=== PATIENT | male | born 1970 | race Caucasian/White ===

== ENCOUNTER 2016-03-05 16:46 | Emergency (ER) | payer MEDICAID ==
[2016-03-05 17:38] VITALS: BP 135/80
[2016-03-05] MEDS ORDERED: ceFAZolin 2 GM in Sodium Chloride 0.9% 100 ML IV ONE (17:42)
--- NOTE | 2016-03-05 17:47 | ED Physician Chart ---
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 since friday has noted redness and swelling and mod ache pain at left ant knee. he says back of leg hurts also. no fever. no sob. no cough. no cp. no khari pmh Allergies:: Allergies Allergy/AdvReac Type Severity Reaction Status Date / Time No Known Allergies Allergy Verified 03/05/16 17:34 Vitals:: Vital Signs - 8 hr 03/05/16 17:37 BP 135/80 Historian:: Patient Review of Systems - Review of Systems General/Constitutional: No fever, No chills, No weight loss, No weakness, No diaphoresis, No edema, No loss of appetite Skin: No skin lesions, No rash, No bruising Head: No headache, No light-headedness Eyes: No loss of vision, No pain, No diplopia ENT: No earache, No nasal drainage, No sore throat, No tinnitus Neck: No neck pain, No swelling, No thyromegaly, No stiffness, No mass noted Cardio Vascular: No chest pain, No palpitations, No PND, No orthopnea, No edema Pulmonary: No SOB, No cough, No sputum, No wheezing GI: No nausea, No vomiting, No diarrhea, No pain, No melena, No hematochezia, No constipation, No hematemesis G/U: No dysuria, No frequency, No hematuria Musculoskeletal: Bone or joint pain, No back pain, No muscle pain Endocrine: No polyuria, No polydipsia Psychiatric: No prior psych history, No depression, No anxiety, No suicidal ideation Hematopoietic: No bruising, No lymphadenopathy Allergic/Immuno: No urticaria, No angioedema Neurological: No syncope, No focal symptoms, No weakness, No paresthesia, No headache, No seizure, No dizziness, No confusion, No vertigo Past Medical History - Past Medical History Past Medical History: No significant medical hx Social History: Non Smoker Medication: None Family Medical History - Family Member Mother Ethnicity: Hx Family Cancer: No Hx Family Coronary Artery Disease: No Hx Family Congestive Heart Failure: No Hx Family Hypertension: No Hx Family Stroke: No Hx Family Diabetes: No Hx Family Seizures: No Hx Family Dementia: No Hx Family AIDS: No Hx Family HIV: No Hx Family COPD: No Hx Family Hepatitis: No Hx Family Psychiatric Problems: No Hx Family Tuberculosis: No Physical Exam - Physical Examination General/Constitutional: Awake, Well-developed, well-nourished, Alert, No distress, GCS 15, Non-toxic appearing, Ambulatory Head: Atraumatic Eyes: Lids, conjuctiva normal, PERRL, EOMI Skin: Nl inspection, No rash, No skin lesions, No ecchymosis, Well hydrated, No lymphadenopathy ENMT: External ears, nose nl, Nasal exam nl, Lips, teeth, gums nl Neck: Nontender, Full ROM w/o pain, No JVD, No nuchal rigidity, No bruit, No mass, No stridor Respiratory: Nl effort/Exclusion, Clear to Auscultation, No Wheeze/Rhonchi/Rales Cardio Vascular: RRR, No murmur, gallop, rubs, NL S1 S2 GI: No tenderness/rebounding/guarding, No organomegaly, No hernia, Normal BS's, Nondistended, No mass/bruits, No McBurney tenderness : No CVA tenderness Extremities: Full ROM, normal strength in all extremities, No edema, Normal digits & nails Other Extremities comments:: tndr at anterior left knee w red and local swelling superficial to patella.( bulging superficial abscess) no knee effusion, ok rom. no calf edema. Neuro/Psych: Alert/oriented, DTR's symmetric, Normal sensory exam, Normal motor strength, Judgement/insight normal, Mood normal, Normal gait, No focal deficits Misc: normal gait, Normal back, No paraspinal tenderness Labs/Radiology/EKG Results - Radiology Results Results: us l leg no dvt. wnl Assessment - Procedures Procedures:: I+D Abscess at left ant knee. betadyne prep lido 1pct w epi 6ml to ant l knee around abscess sterile prep/drapes #11 scalpel to make 0.8cm incision at ant knee. drainage of lrg ammt gary pus. cx obtained and sent. pt had very poor tolerance of pain w lido injection. he also had very poor tolerance of I+D procedure w him moving around excessively on bed and finally yelling "no more" at me... ED Septic Shock - . Is Septic Shock (SBP<90, OR Lactate>4 mmol\\L) present?: No - <6hrs of presentation: Vital Signs: Vital Signs - 8 hr 03/05/16 17:37 BP 135/80 Reassessment (Disposition) - Reassessment Reassessment:: pt was given ms4mg iv and zofran. 7;54p - reexamined pt. suggested we attempt to further drain the knee but pt is not willing to allow me to try. I would think after the MS this would be easier but pt still refuses. explained to pt to try to drain it further in tub when he gets home. will rx keflex and norco 5s #10 pt to return if worse. off work. see pmd this week. Reassessment Condition:: Improved - Diagnosis Diagnosis:: superficial abscess left anterior knee - Aftercare/Follow up Instructions Aftercare/Follow-Up Instructions:: Counseled pt regarding lab results/diagnosis & need follow up Notes:: advised to wash knee in bath 2x/day. take keflex as rx'd return if worse swelling and fever. or weakness/confusion or spreading redness w high fever - Patient Disposition Discharge/Transfer:: Home Condition at Disposition:: Improved
[2016-03-05 19:03] LABS: % BASOPHILS 1.2 % (0.0-2.0); % EOSINOPHILS 1.4 % (0.0-5.0); % LYMPHOCYTES 13.6 % (20.0-50.0); % MONOCYTES 6.6 % (2.0-10.0); % NEUTROPHILS 77.2 % (40.0-80.0); HEMOGLOBIN 13.5 gm/dL (13.2-17.3); MEAN CELL VOLUME 85.3 fl (80-99); MEAN CORPUSCULAR HEMOGLOBIN 28.1 pg (26.0-30.0); MEAN CORPUSCULAR HGB CONC 32.9 pg (28.0-36.0); MEAN PLATELET VOLUME 7.2 fl; NEUTROPHILE ABSOLUTE 7.1 Th/cmm (1.8-8.0); PLATELET COUNT 324 Th/cmm (150-400); RED BLOOD COUNT 4.81 Mil/cmm (4.30-5.70); RED CELL DISTRIBUTION WIDTH 11.5 % (11.5-20.0); WHITE BLOOD COUNT 9.1 Th/cmm (4.8-10.8)
[2016-03-05] MEDS ORDERED: Morphine Sulfate 4 mg/mL 1mL Syr ONE (19:17)
[2016-03-05 19:21] LABS: BUN - UREA NITROGEN 12 mg/dL (7-25); CALCIUM SERUM 9.1 mg/dL (8.6-10.3); CARBON DIOXIDE 29.6 mEq/L (21.0-31.0); CHLORIDE 102 mEq/L (98-107); CREATININE - SERUM 0.8 mg/dL (0.7-1.3); GLUCOSE 106 mg/dL (70-105); POTASSIUM SERUM 3.6 mEq/L (3.5-5.1); SODIUM SERUM 137 mEq/L (136-145)
--- NOTE | 2016-03-06 12:55 | Diagnostic Imaging Report ---
Left lower extremity Doppler venous ultrasound exam HISTORY: Pain/swelling Sonographic sector images were obtained through the deep venous systems of the left leg. Associated Doppler data was obtained. The exam demonstrates patency of the common femoral, superficial femoral, popliteal, and posterior tibial veins. Specifically, no thrombus is seen. There are normal compressibility and augmentation responses. IMPRESSION: Negative exam for deep vein thrombophlebitis.
== END 2016-03-05 20:25 | disposition home or self-care (01) ==
LOC: ER 16:46
DX: L02.416 Cutaneous abscess of left lower limb (principal)
CPT/HCPCS: 99285; 96365; 93971; 10060; 96375; 36415; 87075; 87205; 85025; 87070; 80048; J2405; J0690; Z7610